=== PATIENT | female | born 1930 | race Caucasian/White ===

== ENCOUNTER 2017-01-28 23:35 | Inpatient (IN) | payer MEDICARE ==
[~2017-01-28] VITALS: Ht 167.6 cm; Wt 63.6 kg
--- NOTE | ~2017-01-28 | CON ---
PATIENT'S NAME: MADI VALLEJO [facility] AGE: 86 Y [address] [place] [facility] [place], [place] [address] LOCATION: GPCU ADMIT DATE: 01/30/2017 Consultation DISCHARGE DATE: FAMILY PHYSICIAN: MEKA DEAN MD ATTENDING PHYSICIAN: MEKA DEAN DATE OF CONSULTATION: 01/30/2017 REFERRING PHYSICIAN: CELI LUNSFORD MD REASON FOR CONSULTATION: Evaluation and management of a patient with a right-sided pleural effusion, pneumonia, and overall abnormal chest CT. CHIEF COMPLAINT: Shortness of breath and hypoxia. HISTORY OF PRESENT ILLNESS: This is an 86-year-old female, jail patient, who was admitted yesterday after presenting with increased shortness of breath, hypoxia, cough, and fevers. According to the history and physical performed by her primary care physician ,Dr. Dean, the patient was sent to the emergency room because of her persistent hypoxia and required up to 5 L of oxygen. She usually requires 2 to 3 L at baseline. A chest x-ray done on initial admission raised the possibility of a right lung pneumonic infiltrate with a right-sided pleural effusion. Eventually, Dr. Dean ordered a chest CT, which was done yesterday. I personally reviewed the images that showed bilateral pleural effusions with the right one being larger than the left one. She has a gmgfz-zo-aqwaceym pleural effusion on the left and moderate to large right-sided pleural effusion. When compared to a previous chest CT, her right- sided pleural effusion is only slightly larger. In fact, I evaluated the patient in November of this year for a right lung nodule of 19 mm. At that time, I also performed a spirometry which showed an FEV1 of 40% of predicted which is compatible with severe COPD. She also has history of congestive heart failure and chronic respiratory failure which is multifactorial. She has stage III diastolic dysfunction which is consistent with restrictive pattern on a cardiac echo done earlier this year. On her chest CT from yesterday, the patient also had an enlarging mass at the lower right hilum with consolidation and volume loss in the right lower lobe. Because of her abnormal chest CT, I was asked by Dr. Carrillo to come and evaluate the patient. At the time of my evaluation, the patient was drowsy, but easily arousable. Because of her dementia, she was not able to provide too much information. By the time of my arrival, she was requiring 2 to 3 L of oxygen at rest. She denied shortness of breath or cough while at rest. Overall, she has low mobility while at the jail. When seen in the clinic on December 05, 2016, the patient's PATIENT'S NAME: MADI VALLEJO [facility] AGE: 86 Y [address] ROOM: [place] [address] LOCATION: GPCU ADMIT DATE: 01/30/2017 Consultation DISCHARGE DATE: FAMILY PHYSICIAN: MEKA DEAN MD ATTENDING PHYSICIAN: MEKA DEAN daughter who is her power of employment attorney declined any aggressive interventions for her lung nodule and they elected to have a followup chest CT in six months. There was also evidence of mediastinal adenopathy at that time. After being admitted to the hospital, the patient was started on Zosyn and clindamycin, and overall, her respiratory and clinical statuses have improved according to her and by reviewing the current medical records. PAST MEDICAL HISTORY: 1. Diastolic congestive heart failure. 2. Chronic respiratory failure. 3. Severe COPD. 4. Mediastinal adenopathy. 5. Right lung nodules in the fissure extending to the hilum. 6. Bilateral chronic pleural effusions. 7. Recent pneumonia. 8. Anxiety. 9. Dementia. 10. Failure to thrive. 11. Gastroesophageal reflux disease. 12. Hypertension. 13. Osteoporosis. SURGICAL HISTORY: 1. Appendectomy. 2. Cataract surgery. 3. Colonoscopy and EGD. 4. Femur repair for femoral fracture. 5. Hemorrhoidectomy. 6. Tonsillectomy. FAMILY HISTORY: Her mother had malignant neoplasm and cardiac arrest. Her son had cerebrovascular accident, diabetes mellitus, hypertension, and cardiac disorder. A brother had malignant neoplasm. SOCIAL HISTORY: She lives in a jail. She is a former smoker having smoked for more than 50 years at least one pack per day and quit in March 2016. MEDICATIONS: At her jail, reviewed as per chart. Current Medications: Reviewed as per MAR. Pertinent medications as per history of present illness. Notably, she is also on Lasix 80 mg every other day alternating with 120 mg every other day. PATIENT'S NAME: MADI VALLEJO [facility] AGE: 86 Y [address] ROOM: [id number] [place], [place] [address] LOCATION: GPCU ADMIT DATE: 01/30/2017 Consultation DISCHARGE DATE: FAMILY PHYSICIAN: MEKA DEAN MD ATTENDING PHYSICIAN: MEKA DEAN ALLERGIES: NO KNOWN DRUG ALLERGIES. REVIEW OF SYSTEMS: Pertinent positives and negatives as per history of present illness. I also reviewed the history and physical and I concur with the review of system performed at that time. Overall, I could not complete a full review of systems that the patient has dementia, and also she is very hard of hearing. PHYSICAL EXAMINATION: VITAL SIGNS: Temperature was 98.9, heart rate was 66, respiratory rate was 20, blood pressure was 149/65, oxygen saturation 95% on 3 L, weight 68.4 kilos, height was 5 feet and 6 inches with a BMI of 24.3. GENERAL: She is an elderly female, frail-looking, sitting up in bed, drowsy, but easily arousable. HEENT: Atraumatic head. PERRLA. Moist oral mucosa. No pharyngeal erythema. NECK: Supple. No JVD. No LAD. Trachea midline. No thyromegaly. RESPIRATORY: She had decreased breath sounds with dullness on percussion at the right lung base with few bibasilar crackles, but no wheezing and no rhonchi. CARDIOVASCULAR: Regular rhythm and rate with multiple PVCs. No murmur, rubs, or gallops. ABDOMEN: Soft, nontender, and nondistended. Bowel sounds are present. EXTREMITIES: She had +2 bilateral lower extremity edema. No cyanosis and no clubbing. NEUROLOGIC: She was alert, oriented x1 grossly nonfocal. LABORATORY DATA: Pertinent data as per history of present illness. Lactate was 1.1, WBC was 11.3, hemoglobin was 11.1, hematocrit was 36.3, platelets were 187,000. Complete metabolic profile was essentially normal except a mildly low albumin of 3.1 and mildly low calcium of 8.4 with a lower limit of normal being 8.5. Procalcitonin was 0.05. Blood cultures had no growth to date. ASSESSMENT: 1. Bilateral pleural effusions. These seemed to be chronic in context of congestive heart failure; however, the right-sided pleural effusion is slightly larger. Because of the developing mass and consolidation in the right lung, I am particularly concerned about a malignant or parapneumonic etiology for worsening of her right-sided pleural effusion. She will need at least a diagnostic thoracentesis, although I would prefer a therapeutic and diagnostic thoracentesis, as a large volume of fluid would help more in making a diagnosis of malignant pleural effusion. PATIENT'S NAME: MADI VALLEJO [facility] AGE: 86 Y [address] ROOM: [id number] [place] [id number] LOCATION: GPCU ADMIT DATE: 01/30/2017 Consultation DISCHARGE DATE: FAMILY PHYSICIAN: MEKA DEAN MD ATTENDING PHYSICIAN: MEKA DEAN 2. Right infrahilar mass. This is most likely due to dense consolidation versus enlarging pulmonary nodule with postobstructive pneumonia versus enlarging adenopathy. 3. Pneumonia. This would be of healthcare-associated pneumonia type. She is currently on broad-spectrum antibiotics. 4. Congestive heart failure. This is of diastolic type and the patient might have a possible exacerbation. 5. Chronic obstructive pulmonary disease. This is severe. There are no other signs of exacerbation at the current point. 6. Ohvsm-px-hkpvule respiratory failure. This seems to have resolved. 7. Dementia. This seems to be advanced. PLAN: 1. I tried to discuss with the patient's daughter Joelle,her POA, over the phone about further evaluation and management of her right-sided pleural effusion and enlarging infrahilar mass. However, her daughter could not be reached over the phone. As mentioned above, I would plan for at least a diagnostic thoracentesis, but I would prefer to do a therapeutic one. She also received Lovenox this morning and I would hold off on Lovenox for a therapeutic thoracentesis unless the patient develops worsening hypoxia or shortness of breath. 2. I will discuss also the need for bronchoscopy. 3. I will switch her diuretics to the IV form and she will need close followup of her renal function. 4. I would continue the current antibiotics and bronchodilator therapy. I would like to thank you, Dr. Dean, for giving me the opportunity to participate in this patient's care. MD FEDERICA FERRER/junel /[id number] d: 01/30/172199 t: 01/31/17 1024, CONSULTATION REPORT
--- NOTE | ~2017-01-28 | DS ---
PATIENT'S NAME: MADI VALLEJO [facility] AGE: 86 Y [address] ROOM: [facility] [place] [place], [place] [address] LOCATION: GPCU ADMIT DATE: 01/30/2017 Discharge Summary DISCHARGE DATE: 02/06/2017 FAMILY PHYSICIAN: Abdelrahman Dean MD ATTENDING PHYSICIAN: Abdelrahman Dean FINAL DIAGNOSES: 1. Right lung mass/effusion. 2. Status post thoracocentesis per Dr. Mei, see procedure note, right chest. 3. Dementia, moderate to severe, chronic with behaviors. 4. Hypertension, essential. 5. History of smoking. 6. Severe chronic obstructive pulmonary disease. 7. Chronic gastroesophageal reflux disease. HOSPITAL COURSE: This lady was admitted to the hospital for a change in mental status, hypoxemia, and an increasing right pleural effusion. She was put on antibiotics and Pulmonary was consulted. Please see Dr. Mei's progress notes, dictated history and physical, and procedure note. 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 Her fluid was sent for pathology review of the right chest at the time of her thoracocentesis, and at the time of this dictation, results are pending. The patient is DNR. The family was informed of the findings on the CAT scan and wanted to proceed with keeping her comfortable, treat infections, and wait and see what the fluid pathology report shows. The patient reached maximal hospital benefit and was dismissed to custodial today, 02/06/2017. There, she can have diet as tolerated, activity as tolerated. See me back in the office in a week or two, and follow up with Dr. Mei as needed. Further treatment would be indicated as her path report comes back on the pleural fluid. I suspect the family will not want radiation therapy or attempted surgery because of her general condition and dementia. She is dismissed on the med list shown which has been reviewed. MD MACIEJ LIZARRAGAR/alejandro /[id number] d: 02/06/172020 t: 02/19/17 1030, DISCHARGE SUMMARY
--- NOTE | ~2017-01-28 | ER ---
PATIENT'S NAME: MARIE VALLEJO Purvi [facility] AGE: 86 Y [address] ROOM: [place] [address] LOCATION: GPCU ADMIT DATE: 01/29/2017 ER/Outpatient Report DISCHARGE DATE: FAMILY PHYSICIAN: MEKA KEBEDE MD ATTENDING PHYSICIAN: MEKA KEBEDE Time of Arrival: 2335 hours. Time of Evaluation: 2350 hours. IDENTIFICATION: An 86-year-old female. CHIEF COMPLAINT: Shortness of breath. HISTORY OF PRESENT ILLNESS: The patient is an 86-year-old female from [facility]. She became more short of breath after dinner tonight at 6:00 p.m. She was given an albuterol treatment because her saturations were in the 80s and she appeared short of breath. She was on her usual 3 L of O2 per nasal cannula but only having saturations in the 80s. She was brought in by EMS, was placed on O2 at 5 L per nasal cannula and transported to the hospital. On arrival here, the patient is tachypneic and some bwbj-mo-walmxmuc respiratory distress. She does have a history of dementia, so her history was obtained, but she denied any trouble breathing, and she complains of "side pain." She points to pain in her right side. No fall or injury. No other problems or concerns. No chest pain. PAST MEDICAL HISTORY: ALLERGIES: NO KNOWN DRUG ALLERGIES. CURRENT MEDICATIONS: 1. O2 at 3 L per nasal cannula. 2. Albuterol p.r.n. 3. Ativan 0.5 mg daily. 4. Diovan 320 mg daily. 5. Exelon Patch 9.5 mg per 24 hours daily. 6. Ferrous sulfate 325 mg daily. 7. Lasix 120 mg daily every other day. 8. Lasix 80 mg every other day. 9. MiraLAX 17 g daily. 10. Multivitamin daily. 11. [place] 5/325 one time daily. PATIENT'S NAME: MADI VALLEJO [facility] AGE: 86 Y [address] ROOM: [place] [address] LOCATION: GPCU ADMIT DATE: 01/29/2017 ER/Outpatient Report DISCHARGE DATE: FAMILY PHYSICIAN: MEKA KEBEDE MD ATTENDING PHYSICIAN: MEKA KEBEDE 12. KCl 20 mEq daily. 13. Psyllium seed with dextrose 1 time daily. 14. Remeron 7.5 mg at bedtime. 15. Toprol-XL 25 mg daily. 16. Vitamin D3, 5000 units daily. 17. Risperdal 2 mg 2 times daily. 18. Tylenol 325 mg 2 tablets 2 times daily. 19. Ativan 0.5 mg q.4 hours p.r.n. 20. Dulcolax suppository p.r.n. 21. Milk of magnesia p.r.n. 22. [place] p.r.n. 23. Tylenol p.r.n. SOCIAL HISTORY: The patient is a DNR and this was confirmed with records and her family. Tobacco use, none noted. Alcohol use, none noted. REVIEW OF SYSTEMS: Unable to obtain from the patient with her dementia. MEDICAL PROBLEMS: Hypertension, COPD, dementia, anxiety, chronic constipation, low back pain, vitamin D deficiency, gastroesophageal reflux disease, and behavioral disturbance. PRIOR SURGERIES: Appendectomy, cataract surgery, colonoscopy, EGD, hemorrhoid surgery, tonsillectomy, and right hip intramedullary nailing. FAMILY HISTORY: Unknown with her dementia. PHYSICAL EXAMINATION: VITAL SIGNS: Blood pressure 180/87, pulse 97, respirations 34, temperature 98.7, and saturations 93% on 6 L per nasal cannula. GENERAL: An 86-year-old female, in oxbj-zz-bunqlipx distress. HEENT: Head: Normocephalic, atraumatic. Ears: TMs not visualized. Eyes: Pupils equal and reactive to light and accommodation. Extraocular movements intact. Nose: Mucosa pink. No lesions or drainage. Mouth: No lesions. Pharynx benign. NECK: Supple. No lymphadenopathy. LUNGS: Clear to auscultation with scattered wheezes and rales. HEART: Regular rate and rhythm. ABDOMEN: Bowel sounds present. Soft, nondistended. SKIN: [place], warm, and dry. No lesions or rashes noted. PATIENT'S NAME: MADI VALLEJO [facility] AGE: 86 Y [address] ROOM: [address] [address] LOCATION: GPCU ADMIT DATE: 01/29/2017 ER/Outpatient Report DISCHARGE DATE: FAMILY PHYSICIAN: MEKA KEBEDE MD ATTENDING PHYSICIAN: MEKA KEBEDE NEURO: The patient is alert. She does have dementia. She is not oriented to person, place, or time. Cranial nerves 2 through 12 grossly intact. Motor strength 5/5 throughout. Sensation is intact to light touch. EXTREMITIES: Lower extremities: She has 2+ pitting edema. No calf tenderness. EMERGENCY DEPARTMENT COURSE: The patient had an IV initiated pre-hospital. Procalcitonin 0.05. Hemoglobin 11.1, hematocrit 36.3, platelets 187, white count 11.3 with 79% neutrophils. INR 0.98. Lactate 1.1. Sodium 143, potassium 3.8, chloride 108, CO2 of 27, BUN 22, creatinine 0.9, blood sugar 100. ProBNP 2082. ProBNP in September 2016 was . EKG: Sinus tachycardia at 108 beats per minute. No acute ST elevation or depression. Artifact is present, and there are nonspecific ST-T wave changes. Liver enzymes normal. Chest x-ray: Bibasilar infiltrate, increased pulmonary vascularity, right pleural effusion. IMPRESSION: 1. Pneumonia. 2. Congestive heart failure. 3. Chronic obstructive pulmonary disease. 4. Dementia. PLAN: Lasix 40 mg IV, Zosyn 4.5 g IV, and clindamycin will be initiated. Since the patient's symptoms started right after dinner, differential diagnosis includes aspiration, so clindamycin 600 mg IV. The patient was given a DuoNeb treatment here with improvement of her wheezing and her respiratory rate decreased at that time. She remained hemodynamically stable and was taken to the floor in guarded condition. I did review the code status with the family as she is a DNR and that was confirmed. ROXANNA SPAIN MD CAR/modl /[id number] d: 01/29/17 0611 t: 01/30/17 0142, OUTPATIENT REPORT
--- NOTE | ~2017-01-28 | HP ---
PATIENT'S NAME: MADI VALLEJO [facility] AGE: 86 Y [address] ROOM: [place] [address] LOCATION: GPCU ADMIT DATE: 01/29/2017 History & Physical DISCHARGE DATE: FAMILY PHYSICIAN: MEKA KEBEDE MD ATTENDING PHYSICIAN: MEKA KEBEDE DATE OF SERVICE: CHIEF COMPLAINT: Shortness of breath, low O2 saturation, cough, and fever. HISTORY OF PRESENT ILLNESS: This elderly 86-year-old correction patient who was evaluated by the nursing staff at her alf facility and I was called with overnight on the day of admission, with the patient's condition change. Because her O2 sats did not respond to breathing treatments and raising, her O2 per nasal prong 5 L. She was sent to the emergency room. She was found there by the ER physician to have hypoxia, right lung infiltrate/right pleural effusion and so she brought and taken to the PCU. She is DNR status. I had just seen her for correction check 3 to 4 days ago in the office and she has been doing well. Her immunizations are up to date for age. She does have a longstanding history of smoking and COPD and an abnormal chest x-ray showing fluid in the right chest prior. When I see her, she is resting quietly in bed. Says she feels okay. She had a temp of 102 spike after admission, which was treated with Tylenol. She was started on IV antibiotics per Dr. Patel in the emergency room. At this point, I think we keep her in the hospital, obviously give her IV antibiotics reassess. Check a CAT scan of her chest today noncontrast to see how much of the infiltrate in the right chest is in fact infection and how much is effusion and I have ordered a pulmonary consultation with Dr. Mei day after tomorrow. The patient understands as best she can, because I think she is demented. We will discuss things with her daughter Yelena later today. PAST MEDICAL HISTORY: MEDICATIONS: Reviewed. ALLERGIES: NOTED. SOCIAL HISTORY: Smoking. PATIENT'S NAME: MADI VALLEJO [facility] AGE: 86 Y [address] ROOM: [place] [address] LOCATION: GPCU ADMIT DATE: 01/29/2017 History & Physical DISCHARGE DATE: FAMILY PHYSICIAN: MEKA KEBEDE MD ATTENDING PHYSICIAN: MEKA KEBEDE FAMILY HISTORY: Noncontributory. IMMUNIZATIONS: As mentioned. REVIEW OF SYSTEMS: Positive for sensorineural hearing loss. Positive for abnormal chest x-ray in the base of right lung. Positive for COPD. Positive for smoking. Positive for dementia Alzheimer's type. See nurse's database form, otherwise. PHYSICAL EXAMINATION: GENERAL: Elderly female who is lying in bed with a neck collar pillow. HEENT: Shows she wears glasses. Pupils reactive to light. TMs are not visualized. Posterior pharynx shows dry mucous membranes. NECK: Unremarkable. I do not see any JVD. LUNGS: Decreased breath sounds throughout. HEART: Shows cardiac sounds to be distant. No obvious murmur. ABDOMEN: Benign without point tenderness or mass. PELVIC/RECTAL: Not done. BREASTS: Not done. EXTREMITIES: Shows trace of edema. NEUROLOGIC: Shows no lateralizing signs. ASSESSMENT: 1. Shortness of breath. 2. Cough. 3. Fever. 4. Hypoxemia/respiratory failure probably secondary to acute pneumonia and right pleural effusion. 5. Dementia, Alzheimer's type. 6. Chronic obstructive pulmonary disease. 7. Smoking. PLAN: As above. MEKA KEBEDE MD PATIENT'S NAME: MADI VALLEJO [facility] AGE: 86 Y [address] ROOM: [address] [address] LOCATION: GPCU ADMIT DATE: 01/29/2017 History & Physical DISCHARGE DATE: FAMILY PHYSICIAN: MEKA KEBEDE MD ATTENDING PHYSICIAN: MEKA KEBEDE SURGICAL AIDE/modl /[id number] D: T: HISTORY & PHYSICAL
[~2017-01-28 23:35] MED LIST changes: -DIOVAN320 MG PO; -DULCOLAX10 MG R; -K-TAB 10MEQ10 MEQ PO; -LASIX40 MG PO; -LASIX80 MG PO; -LEVOTHROID (SY50 MCG PO; -OXYGEN M-15
[2017-01-29 00:22] LABS: BASOPHIL % 0.3 %; EOSINOPHIL # 0.3 K/uL (0.0-0.5); EOSINOPHIL % 2.7 %; HEMATOCRIT 36.3 % (30.0-46.0); HEMOGLOBIN 11.1 g/dL (10.0-15.0); IMMATURE GRANULOCYTE % 0.4 %; LYMPHOCYTE # 1.2 K/uL (0.8-4.0); LYMPHOCYTE % 10.9 %; MCH 31.8 pg (27.0-34.0); MCHC 30.6 gm/dL (32.0-36.5); MONOCYTE # 0.7 K/uL (0.0-1.0); MONOCYTE % 6.1 %; MPV 10.1 fl (9.4-12.4); NEUTROPHIL % 79.6 %; NRBC % 0 /100WBC (0-0.00); PLATELET COUNT 187 K/uL (150-450); RBC 3.49 M/uL (3.00-5.00); RDW-CV 14.4 % (11.9-14.6); WBC 11.3 K/uL (4.0-11.0)
[2017-01-29 00:41] LABS: INR - (THERAPEUTIC) 0.98 (0.92-1.07); PROTIME 10.3 SECONDS (9.8-11.4)
[2017-01-29 00:42] LABS: ALBUMIN 3.1 gm/dL (3.5-5.0); ANION GAP 11.8 (10.0-19.0); CALCIUM 8.4 mg/dL (8.5-10.5); CREATININE 0.9 mg/dL (0.5-1.1); POTASSIUM 3.8 mMol/L (3.7-5.1); PTT 19 SECONDS (25-32); TOTAL BILIRUBIN 0.3 mg/dL (0.0-1.5)
[2017-01-29] MEDS ORDERED: OXYGEN M-15 (02:34)
[2017-01-29] MEDS ORDERED: LEVOTHROID (SY50 MCG PO (02:36)
[2017-01-29] MEDS ORDERED: DIOVAN320 MG PO (02:42)
[2017-01-29] MEDS ORDERED: LASIX40 MG PO (02:47)
[2017-01-29] MEDS ORDERED: LASIX80 MG PO (02:52)
[2017-01-29] MEDS ORDERED: K-TAB 10MEQ10 MEQ PO (02:59)
[2017-01-29] MEDS ORDERED: ATIVAN 0.5MG0.5 MG PO (03:17)
[2017-01-29] MEDS ORDERED: DULCOLAX10 MG R (03:18)
[2017-01-29] MEDS ORDERED: NORCO 5-325 TA1 EACH PO (03:24)
[2017-01-29] MEDS ORDERED: TYLENOL325 MG PO (03:26)
--- NOTE | 2017-01-29 07:02 | NUR ---
Significant Event: Patient is alert, disoriented to time/place. Vital signs stable. Continues on 6L O2 per NC. Patient is incontinent of urine. On IV Zosyn and clindamycin. Dr. Dean to address patient's home medications this AM. Follow up: Continue to monitor respiratory status.
--- NOTE | 2017-01-29 07:03 | NUR ---
Patient arrived to PCU from ED at around 0200. Patient is from [facility] [place]. She wears 2L O2 during the day and 3L O2 at night at the facility. Per [facility] staff, patient became progressively more short of breath around supper time and continued to get worse, despite increasing O2 and breathing treatments. She was brought to ED by ambulance and her O2 had to be turned up to 6L via NC. She received a nebulizer treatment and 40 mg IVP Lasix. IV antibiotics (Zosyn and clindamycin) initiated. Patient's family with her and they helped answer all admission questions. Patient does have history of COPD, HTN, CHF, and dementia. Baseline is being disoriented to time/place, but is cooperative.
[2017-01-29] MEDS ORDERED: ALBUTEROL2.5 MG/31 INH (12:43)
--- NOTE | 2017-01-29 16:10 | NUR ---
Significant Event: Alert to self. C/O right foot/leg pain, norco given x1 with relief. VSS weaned from 6L/NC to 3L/NC. Repo q2h hours. Incontinent of stool. Poor appetite. New IV to R) wrist d/t patient pulling out previous IV. non contrast CT chest today. Dr Mei consulted and to see Tuesday 01/30 Follow up: cont plan of care.
--- NOTE | 2017-01-30 04:45 | NUR ---
Significant Event:alert to self. VSS.3L NC.sats>90%. turn q2h.IV abx as ordered. Decrease in appetite. pt slept most of the shift. Incont on urine. Follow up: Cont w/plan of care
--- NOTE | 2017-01-30 16:08 | NUR ---
Significant Event: Alert and disoriented to time/place. Drowsy at times. SBP- 100-140s. P- 60-70. Afberile. 2-3L with saturations in the low to mid 90s. Tachypnic at times. R) wrist IV saline locked. Q2HR turns. Poor appetite and PO intake. Inc of urine x4 today. Some redness to the buttocks. Blanchable. Cooperative with cares.
[2017-01-31 04:33] LABS: BASOPHIL % 0.4 %; EOSINOPHIL # 0.4 K/uL (0.0-0.5); EOSINOPHIL % 4.6 %; HEMATOCRIT 30.3 % (30.0-46.0); HEMOGLOBIN 9.3 g/dL (10.0-15.0); IMMATURE GRANULOCYTE % 0.5 %; LYMPHOCYTE # 1.2 K/uL (0.8-4.0); LYMPHOCYTE % 15.7 %; MCHC 30.7 gm/dL (32.0-36.5); MCV 104.1 fl (83.0-98.0); MONOCYTE # 0.8 K/uL (0.0-1.0); MONOCYTE % 10.2 %; MPV 10.2 fl (9.4-12.4); NEUTROPHIL # (ANC) 5.3 K/uL (1.8-7.8); NEUTROPHIL % 68.6 %; NRBC % 0 /100WBC (0-0.00); PLATELET COUNT 175 K/uL (150-450); RBC 2.91 M/uL (3.00-5.00); RDW-CV 14.5 % (11.9-14.6); WBC 7.8 K/uL (4.0-11.0)
[2017-01-31 04:56] LABS: ALBUMIN 2.3 gm/dL (3.5-5.0); ANION GAP 9.6 (10.0-19.0); CALCIUM 8.1 mg/dL (8.5-10.5); CREATININE 0.9 mg/dL (0.5-1.1); PHOSPHORUS 3.6 mg/dL (2.5-4.9); POTASSIUM 3.6 mMol/L (3.7-5.1)
--- NOTE | 2017-01-31 06:38 | NUR ---
Significant Event: disoriented to place/time, hx of dementia, VSS on 2L, lungs coarse/crackles/diminished, non productive cough, temp max of 100.0, Tylenol given, turned Q2hrs, incontinent of urine and stool, denies pain, poor apetite. Follow up: continue to monitor, possible tap on Monday?
--- NOTE | 2017-01-31 18:25 | NUR ---
Significant Event: Patient alert to person not place or time. Vital signs stable on 2-3L via nasal cannula. Turned q2hrs. Incontinent of bowel and bladder. Pills crushed in pudding. IV to right wrist with intermittent antibiotics. Family at bedside at end of shift. Pleasant and cooperative with cares. Has rested well during shift. Follow up:
--- NOTE | 2017-02-01 05:06 | NUR ---
Significant Event: Oriented to self, VSS on 3L O2, patient yells out "help", more confused, temp max of 101.5, Tylenol given with improvement, incontinent at times of urine, reposition Q2hr, IV antibiotics continue Follow up: continue plan of care
[2017-02-01 05:48] LABS: ALBUMIN 2.4 gm/dL (3.5-5.0); ANION GAP 9.6 (10.0-19.0); CALCIUM 8.1 mg/dL (8.5-10.5); CREATININE 0.9 mg/dL (0.5-1.1); PHOSPHORUS 3.1 mg/dL (2.5-4.9); POTASSIUM 3.6 mMol/L (3.7-5.1)
--- NOTE | 2017-02-01 13:17 | NUR ---
Called and patient update to Suly at [facility].
--- NOTE | 2017-02-01 16:30 | NUR ---
Significant Event: Disoriented to time/place. Calls out at times. [id number]. Afebrile. 2L during the day and 3L at HS per home dose. Tachypnic and dyspnic with exertion. Lungs clear diminished with crackles in the bases billaterally. Inc of urine and stool at times. Need sputum culture. R) thoracentecis done today. 600ml of fluid drained and fluid was sent for further testing. Gauze and tagaderm ok to come off in 24hr. Possible discharge home tomorrow.
[2017-02-01 17:53] LABS: BILIRUBIN URINE NEGATIVE (NEGATIVE); BLOOD URINE NEGATIVE /UL (NEGATIVE); COLOR URINE YELLOW (YELLOW); GLUCOSE URINE NEGATIVE (NEGATIVE); KETONE URINE NEGATIVE (NEGATIVE); LEUKOCYTES URINE NEGATIVE /UL (NEGATIVE); NITRITE URINE NEGATIVE (NEGATIVE); PROTEIN URINE NEGATIVE (NEGATIVE); TURBIDITY URINE CLEAR (CLEAR); UROBILINOGEN URINE NORMAL (NORMAL)
[2017-02-02 03:45] LABS: ALBUMIN 2.3 gm/dL (3.5-5.0); ANION GAP 8.4 (10.0-19.0); CALCIUM 8.1 mg/dL (8.5-10.5); CREATININE 0.9 mg/dL (0.5-1.1); POTASSIUM 3.4 mMol/L (3.7-5.1)
--- NOTE | 2017-02-02 04:41 | NUR ---
Significant Event: Patient is drowsy. Awakens to voice. Oriented to self. Disoriented to time/place. VSS on 2L of O2. HRs in the 60s-80s. SBPs in the 1 teens-130s. Max temp of 99.1. Reposition q2 hours. Non-productive, moist cough. Need sputum culture. Lung sounds slightly coarse throughout. Tylenol extra strength given at 1934 for right ankle pain. Left forearm IV, saline locked. Receiving intermittent IV antibiotics. Takes pills crushed in pudding. 1:1 feeder. Patient is cooperative with cares. Follow up:
--- NOTE | 2017-02-02 17:01 | NUR ---
SLEPT UNTIL 1100. PT ALERT TO PLACE AND SELF. AT 1100 ASSESSEMENT HELD VALSARTAN DUE TO LOW BP. LUNGS CLEAR BILAT. HAS A FOLLEY, OUTPUT OF 1200. BOWEL MOEVMENT X2.
--- NOTE | 2017-02-02 18:12 | NUR ---
I HAVE READ AND AGREE WITH CHARTING DONE BY Myah CARMICHAEL STUDENT NURSE.
--- NOTE | 2017-02-03 05:03 | NUR ---
Significant Event:DISORIENTED TO TIME. RESTED IN BED ALL OF SHIFT. TURNED Q 2 HRS SIDE TO SIDE. HAD A MAX TEMP OF 99.3 BEGINNING OF SHIFT BUT BEEN AFEBRILE SINCE. IV TO L) FA HAS ZOSYN RUNNING. CONTINUE WITH IV ANTIBIOTICS. DENIES PAIN. ZAMUDIO PRESENT WITH 350 ML OUT. HARDLY DRANK ANYTHING THIS SHIFT. ENCOURAGED FLUIDS. ALSO REFUSED SUPPER. NO BM THIS SHIFT. Follow up: CONTINUE WITH PLAN OF CARE. NEED SPUTUM CULTURE.
[2017-02-03 05:58] LABS: ALBUMIN 2.4 gm/dL (3.5-5.0); ANION GAP 9.9 (10.0-19.0); BLOOD UREA NITROGEN 25 mg/dL (6-24); CALCIUM 8.6 mg/dL (8.5-10.5); CHLORIDE 110 mMol/L (96-110); CO2 31 mMol/L (22-32); CREATININE 0.8 mg/dL (0.5-1.1); ESTIMATED GFR (MDRD EQUATION) > 60; PHOSPHORUS 3.6 mg/dL (2.5-4.9); POTASSIUM 3.9 mMol/L (3.7-5.1); SODIUM 147 mMol/L (135-145)
--- NOTE | 2017-02-03 12:03 | NUR ---
A - PT SCREENED D/T LOS. DECREASED APPETITE. 1:1 @ MEALS. ENC FLUIDS. 1+ EDEMA. HT: 66" WT: 140# (02/03), 150# (01/29) - DOWN 10# (6.7%) SINCE ADMIT - ON LASIX. BMI: 22.5. LABS: NA 147, BUN/CR 25/2.4. MEDS: LASIX, PROTONIX, REMERON, EXELON PATCH, KCL, SYNTHROID, FEOSOL, ZOSYN, BOWEL. DIET: MECH-SOFT. INTAKE: BITES-25% NEEDS: 3906-4253 KCAL (25-30 KCAL/KG), 51-64 G PRO (0.8-1 G/KG), 1910 ML FLUID (30 ML/KG) D - INADEQUATE NUTRIENT INTAKE R/T DECREASED APPETITE AEB INTAKE RECORD. I - GOAL FOR INCREASED ORAL INTAKE. WILL ADD ENSURE TID AND ENSURE PUDDING @ L M/E - WILL MONITOR INTAKE F/U IN 4-6 DAYS.
--- NOTE | 2017-02-03 12:37 | NUR ---
Called and updated Suly at [facility] that patient may be ready for discharge on Tuesday 02/06.
--- NOTE | 2017-02-03 16:24 | NUR ---
Patient is alert, oriented to name, month and date of birthday but not year. Has been on bedrest with bathroom privleges. Larson in place. Incontinent of stool this am. On 2L O2, in low 90's and high 80's, might have to increase to 3L before shift change. 1:1 feeder on mechanical soft diet, thin liquids. Appetite is decreased. Repo Q2 hours.IV to L) forearm. Had a thoracentesis in the R) upper back, dressing removed today. Crush meds in pudding or applesauce but she refused to take the majority of them. Will go back to [facility] on Monday.
--- NOTE | 2017-02-04 04:24 | NUR ---
DISORIETED TIME AND PALCE. HR 70-80s. SBP 120-140s. TMAX 99.5. CURRENTLY 1L O2 OH. ZAMUDIO INTACT. INCON BMx2. TURN Q2H. DENIES PAIN. PLAN BACK TO [facility] ON MONDAY. [facility] SOFT THIN LIQUID DIET. PILLS CRUSHED IN PUDDING. 1:1 FEEDER.
[2017-02-04 04:32] LABS: ALBUMIN 2.3 gm/dL (3.5-5.0); ANION GAP 11.6 (10.0-19.0); BLOOD UREA NITROGEN 24 mg/dL (6-24); CALCIUM 8.3 mg/dL (8.5-10.5); CHLORIDE 109 mMol/L (96-110); CO2 32 mMol/L (22-32); CREATININE 0.8 mg/dL (0.5-1.1); ESTIMATED GFR (MDRD EQUATION) > 60; POTASSIUM 3.6 mMol/L (3.7-5.1); SODIUM 149 mMol/L (135-145)
--- NOTE | 2017-02-04 17:08 | NUR ---
Patient is alert and oriented to name. VSS on 2L O2, started out the shift on 1L. Repo Q2 hours. Soft diet. Larson with 550ml out. Had 2 small BMs this shift. Meds are crushed in pudding. AM meds were given 1/3 at 0700, 1/3 at 0900 and 1/3 at 1100. She took all but the miralax and metamucil. 1:1 feeder and only had about half of a pudding for lunch and only bites for breakfast. Will go back to [facility] on Monday.
--- NOTE | 2017-02-04 19:03 | NUR ---
PT UNABLE TO PERFORM IS/ FV AT THIS TIME.
[2017-02-05 04:27] LABS: ALBUMIN 2.3 gm/dL (3.5-5.0); ANION GAP 9.8 (10.0-19.0); BLOOD UREA NITROGEN 22 mg/dL (6-24); CALCIUM 8.5 mg/dL (8.5-10.5); CHLORIDE 110 mMol/L (96-110); CO2 32 mMol/L (22-32); CREATININE 0.8 mg/dL (0.5-1.1); ESTIMATED GFR (MDRD EQUATION) > 60; PHOSPHORUS 3.5 mg/dL (2.5-4.9); POTASSIUM 3.8 mMol/L (3.7-5.1)
[2017-02-05 04:32] LABS: SODIUM 148 mMol/L (135-145)
--- NOTE | 2017-02-05 05:26 | NUR ---
Significant event: Patient is oriented to name only. pressley intact with 350ml UOP. Turn Q2HRS per protocol. 1:1 supervised feeder. Takes pills crushed in pudding. On 2L Nc Temp has been On the higher side of 90's
--- NOTE | 2017-02-05 06:47 | NUR ---
Pt. unable to perform IS and FV due to sleepiness and weakness of age.
--- NOTE | 2017-02-05 16:00 | NUR ---
Significant Event: PT oriented to person, drowsy. VSS, O2 at 1L per nasal cannula. PT repositioned side to side Q2H. Pills given crushed in pudding, needs lots of encouragement to take. Ate only bites of breakfast and lunch. Drinking very little. Larson patent. Follow up:
--- NOTE | 2017-02-06 04:51 | NUR ---
Significant event: Alert to person only. Larson intact with 375ml Uop. 1 Mod loose stool. Turn side to side every 2 hours per protocol. 1:1 feeder. Takes pills crushed in pudding. She wears 1-2L 02 with sats in the mid 90's, all other vss. Possible discharge back to [facility] today.
[2017-02-06 07:00] LABS: ALBUMIN 2.3 gm/dL (3.5-5.0); BLOOD UREA NITROGEN 31 mg/dL (6-24); CALCIUM 8.7 mg/dL (8.5-10.5); CHLORIDE 112 mMol/L (96-110); CO2 32 mMol/L (22-32); CREATININE 0.8 mg/dL (0.5-1.1); ESTIMATED GFR (MDRD EQUATION) > 60; PHOSPHORUS 3.6 mg/dL (2.5-4.9)
[2017-02-06 07:26] LABS: SODIUM 150 mMol/L (135-145)
--- NOTE | 2017-02-06 11:56 | NUR ---
Transfer note: Pt is alert to self. Has been on 1-3L oxygen during day and night. Vital signs have been stable. takes pills slowly crushed in chocolate pudding. Last BM was this morning, had a large stool. Continues on oral antibiotics. Has been on bedrest with q 2 hour turning and bathroom priviledges. Is weak and does not stand for long. Only takes sips and bites of meals. Is a 1-1 feeder.
--- NOTE | 2017-02-06 13:02 | NUR ---
Called and updated Suly at [facility] that patient has signed discharge orders on chart. Made arrangements for transportation at 1200. Orders faxed.
== END 2017-02-06 12:15 | DRG 291 ==
LOC: GMED 23:35 → GPCU 01-29 02:02
PROVIDERS: Family Medicine; Internal Medicine Critical Care Medicine; ADMIT Family Medicine
PROC: 0W993ZX Drainage of Right Pleural Cavity, Percutaneous Approach, Diagnostic (ICD-10-PCS; principal; 2017-02-01)
DX: I50.33 Acute on chronic diastolic (congestive) heart failure (principal); J18.9 Pneumonia, unspecified organism; J96.21 Acute and chronic respiratory failure with hypoxia; J90 Pleural effusion, not elsewhere classified; J44.9 Chronic obstructive pulmonary disease, unspecified; G30.9 Alzheimer's disease, unspecified; F02.80 Dementia in other diseases classified elsewhere, unspecified severity, without behavioral disturbance, psychotic disturbance, mood disturbance, and anxiety; R91.8 Other nonspecific abnormal finding of lung field; Z66 Do not resuscitate; I10 Essential (primary) hypertension; Z87.891 Personal history of nicotine dependence; K21.9 Gastro-esophageal reflux disease without esophagitis; M81.0 Age-related osteoporosis without current pathological fracture; F41.9 Anxiety disorder, unspecified; R62.7 Adult failure to thrive
CPT/HCPCS: G0237; G0378; G8996; G8997; G8998; J1650; J1940; J2543; J7050

== ENCOUNTER → 2017-01-28 | Outpatient (CLI) | payer MEDICARE ==
[~2017-01-28] MED LIST: ALBUTEROL1.25 MG/3 INH; ALBUTEROL2.5 MG/0.5 INH; ALBUTEROL2.5 MG/31 INH; ALENDRONATE SOD70 MG PO; ANTACID CHEWAB1 EACH PO; ANTACID300 MG PO; ATIVAN 0.5MG0.5 MG PO; AUGMENTIN875 MG PO; BISCOLAX10 MG R; COLACE100 MG PO; DIOVAN320 MG PO; DULCOLAX10 MG R; EXELON1 EAC1 TRANS; FEOSOL325 MG PO; FLORASTOR250 MG PO; K-TAB 10MEQ10 MEQ PO; LASIX40 MG PO; LASIX80 MG PO; LEVAQUIN500 MG PO; LEVOTHROID (SY50 MCG PO; MILK OF MA400 MG/5 M PO; MIRALAX17 GM PO; MULTIVITAMINS1 EAC1 PO; NORCO 5-325 MG1 TAB PO; NORCO 5-325 TA1 EACH PO; NORVASC5 MG PO; OXYGEN M-15; OYSTER SHELL C500 MG PO; PRILOSEC20 M1 PO; PROAIR HFA8.5 GM INH; REGULOID POWDE PO; REMERON15 MG PO; RISPERDAL1 MG PO; THERA-VITE W/ B1 TAB PO; TOPROL XL25 MG PO; TRAMADOL HCL50 MG PO; TUMS REGULAR ST1 TAB PO; TUMS SMOOTHIES300 MG PO; TYLENOL325 MG PO; VASOTEC10 MG PO; VITAMIN D35000 UNIT PO
== END | disposition disaster alternative care site (69) ==
LOC: GAMB 23:08
DX: J18.9 Pneumonia, unspecified organism (principal); F03.90 Unspecified dementia, unspecified severity, without behavioral disturbance, psychotic disturbance, mood disturbance, and anxiety; J81.1 Chronic pulmonary edema; J44.9 Chronic obstructive pulmonary disease, unspecified; I10 Essential (primary) hypertension; R06.02 Shortness of breath; R06.4 Hyperventilation; Z86.79 Personal history of other diseases of the circulatory system
CPT/HCPCS: A0422; A0425; A0427